=== PATIENT | male | born 1955 | race Caucasian/White ===

== ENCOUNTER 2021-02-26 01:14 | Emergency (ER) | payer OTHER ==
[~2021-02-26] VITALS: Ht 180.3 cm; Wt 111.1 kg
[~2021-02-26 01:14] MED LIST: LISINOPRIL2.5 MG PO; NORFLEX100 MG PO; ULTRAM 50MG TAB50 MG PO
[2021-02-26] MEDS ORDERED: HYDROCODON-ACE1 EAC7 PO (02:17)
[2021-02-26] MEDS ORDERED: MEDROLDOSEPACK PO (02:18)
[2021-02-26] MEDS ORDERED: ZANAFLEX4 MG PO (04:04)
[2021-02-26 05:25] VITALS: BP 137/58
== END 2021-02-26 05:45 | disposition home or self-care (01) ==
LOC: ER 01:14
DX: M54.41 Lumbago with sciatica, right side (principal); I10 Essential (primary) hypertension; Z98.890 Other specified postprocedural states